=== PATIENT | female | born 1985 | race Caucasian/White ===

== ENCOUNTER 2016-09-28 09:35 | Inpatient (IN) | payer OTHER ==
[2016-09-28 10:11] LABS: APPEARANCE,URINE SLIGHTLY-CLOUDY; BILIRUBIN,URINE NEGATIVE (NEGATIVE); GLUCOSE, URINE NEGATIVE (NEGATIVE); KETONES,URINE NEGATIVE (NEGATIVE); LEUKOCYTE ESTERASE,URINE NEGATIVE (NEGATIVE); NITRITE,URINE NEGATIVE (NEGATIVE); PROTEIN,URINE NEGATIVE (NEGATIVE); URINE SPECIFIC GRAVITY 1.013; UROBILINOGEN,URINE NEGATIVE mg/dL (<2.0)
[2016-09-28 10:42] LABS: URINE BARBITURATES SCREEN NEGATIVE; URINE METHADONE SCREEN NEGATIVE; URINE OPIATES LOW NEGATIVE; URINE PHENCYCLIDINE SCREEN NEGATIVE
[2016-09-28] MEDS ORDERED: MISOPROSTOL 0.2 MG TABLET ONE (11:15)
[2016-09-28] MEDS ORDERED: OXYTOCIN/NORMAL SALINE 20 UNIT/1,000 ML RTUINJ ONE (11:15)
[2016-09-28] MEDS ORDERED: LIDOCAINE 1% INJ-PF (10 MG/ML) 30 ML SDV ONE (11:15)
[2016-09-28 11:24] LABS: ABSOLUTE BASOPHILS # (AUTO) 0.1 10^3/uL (0.0-0.2); ABSOLUTE LYMPHOCYTES (AUTO) 2.7 10^3/uL (0.5-4.7); ABSOLUTE NEUT (AUTO) 9.9 10^3/uL (1.7-8.2); BASOPHILS % (AUTO) 0.4 % (0-2); EOSINOPHILS % (AUTO) 0.3 % (0-6); HEMATOCRIT 36.2 % (36.0-47.0); HEMOGLOBIN 11.9 g/dL (12.0-15.5); HGB HCT DIFFERENCE -0.5; LYMPHOCYTES % (AUTO) 19.7 % (13-45); MEAN CORPUSCULAR HEMOGLOBIN 29.2 pg (27.0-33.4); MEAN CORPUSCULAR HGB CONC 32.8 g/dL (32.0-36.0); MEAN CORPUSCULAR VOLUME 89 fl (80-97); MONOCYTES % (AUTO) 7.4 % (3-13); RED BLOOD COUNT 4.06 10^6/uL (3.72-5.28); RED CELL DISTRIBUTION WIDTH 14.9 % (11.5-14.0); SEGMENTED NEUTROPHILS % (AUTO) 72.2 % (42-78); WHITE BLOOD COUNT 13.8 10^3/uL (4.0-10.5)
[2016-09-28] MEDS ORDERED: OXYTOCIN/NORMAL SALINE 1,000 ML IV PRN (11:28)
[2016-09-28] MEDS ORDERED: DIPH/PERTUSS(ACELL)/TETANUS VAC/PF 0.5 ML SYR (>=10YO) IM PRN (11:28)
[2016-09-28] MEDS ORDERED: DIBUCAINE 1% OINTMENT 28 GM TP PRN (11:28)
[2016-09-28] MEDS ORDERED: ACETAMINOPHEN WITH CODEINE #3 TABLET PO PRN ×2 (11:28)
[2016-09-28] MEDS ORDERED: MEASLES,MUMPS&RUBELLA VACC/PF 0.5 ML VIAL SUBCUT PRN (11:28)
[2016-09-28] MEDS ORDERED: ZOLPIDEM TARTRATE 5 MG TABLET PO PRN (11:28)
[2016-09-28] MEDS ORDERED: OXYTOCIN 10 UNIT/ML VIAL ONE ×2 (11:32→11:53)
[2016-09-28] MEDS ORDERED: METHYLERGONOVINE MALEATE INJ/PF 0.2 MG/1 ML AMPULE ONE (11:40)
[2016-09-28] MEDS ORDERED: FENTANYL CITRATE INJ/PF 100 MCG/2 ML AMPUL ONE (11:52)
[2016-09-28] MEDS ORDERED: CEFAZOLIN 2 GM/D5W RTU 2 GM/50 ML RTUPB IV ONE (12:00)
--- NOTE | 2016-09-28 12:01 | L&D Flow Sheet ---
LD Flowsheet Datetime Report Generated by CPN: 09/28/2016 12:00 Datetime: 09/28/2016 11:41 NBP Sys/Iris/Mean (mmHg): 90 (QS system process) : 61 (QS system process) : 71 (QS system process) Pulse: 86 (QS system process) LaborFlag: Labor (QS system process) Datetime: 09/28/2016 11:30 Medication Comments: IM Pitocin 10 (Eunice Giron, RN) Datetime: 09/28/2016 11:11 Dilatation (cm): 10.0 (Eunice Giron, RN) Effacement (%): 100 (Eunice Giron RN) Station: 1 (Eunice Giron RN) Exam by: A. Emmel CNM (Eunice Giron RN) Datetime: 09/28/2016 11:10 Communication Comments: A. Emmel CNM at bedside (Eunice Giron, RN) Datetime: 09/28/2016 11:09 IV/Blood Work: IV Started; IV Bolus Started (Eunice Giron RN)
[2016-09-28] MEDS ORDERED: CEFAZOLIN 2 GM/D5W RTU 50 ML IV SCH (12:45)
--- NOTE | 2016-09-28 13:46 | Delivery Summary ---
Del Sum A-C Datetime Report Generated by CPN: 09/28/2016 13:45 ADMISSION DATA Chief Complaint: Uterine Contractions; Suspected Ruptured Membranes Admission Impression: Term, Intrauterine Admit Provider Comments: 31 yo admitted for SROM- thick meconium EDC 09/26/16 EGA 40.2 Term Anemia admit pain management reviewed pt desires ambulating provided tracing wnl anticipate d/c DELIVERY PERSONNEL Delivery Doctor:: Silvana Verde MD Nurse Glass Driller Certified:: Boy Barrera CNM Labor and Delivery Nurse:: Eunice Giron foreign student adviser Nurse:: Ashley Buchanan RNC Nursery Nurse:: Joelle Minor RN MATERNAL INFORMATION Delivery Anesthesia: None Medications After Delivery: Pitocin 10 Units IM; Pitocin Bolus-Please Comment; Pitocin Drip 20 Units/1000ml NSS; Methergine 0.2mg IM; Other-Please Comment Meds After Delivery Comment: Cytotec 1000mcg given [place] per Love Barrera CNM, Pitocin 20 units added to Pitocin bag Estimated Blood Loss (ml): 600 Maternal Complications: Precipitous Labor (<3hrs) Provider Comments: delivery of viable female infant bulb suctioned on perinuem to abdomen nursery at bedside cord clamped cut by FOB placenta zavala uterine massage uterine atony pitocin 10 units IM pitcoin infusing 40 units IV cytotec 1000 mcg pv straight cath 200 cc clear urine fundal massage relieves uterine atony methergine 0.2 mg uterine exploration with large clots expelled small clot felt on fundus- Dr. Verde to bedside EBL 600 cc hemostasis achieved LABOR SUMMARY EDC: 09/26/2016 00:00 Attempted: No Labor Anesthesia: None LABOR INFORMATION Reason for Induction: Not Applicable Onset of Labor: 09/28/2016 10:13 Complete Dilatation: 09/28/2016 11:11 Oxytocin: N/A Group B Beta Strep: negative Antibiotics # of Doses: 0 Steroids Given: None Reason Steroids Not Administered: Not Applicable MEMBRANES Membranes Rupture Method: Spontaneous Rupture of Membranes: 09/28/2016 10:13 Length of Rupture (hr): 1.28 Amniotic Fluid Color: Heavy Meconium Amniotic Fluid Amount: Moderate Amniotic Fluid Odor: Normal STAGES OF LABOR Stage 1 hr: 0 Stage 1 min: 58 Stage 2 hr: 0 Stage 2 min: 19 Stage 3 hr: 0 Stage 3 min: 3 Total Time in Labor hr: 1 Total Time in Labor min: 20 VAGINAL DELIVERY Episiotomy: None Laceration Extension: First Degree Laceration Type: Periurethral Laceration Repair: Yes Laceration Repair Note: right and left periurethral tear right labial tear CSECTION DELIVERY Primary Indication: N/A Secondary Indication: N/A CSection Incidence: N/A Labor: N/A Elective: N/A CSection Incision: N/A BABY A INFORMATION Delivery Date/Time: 09/28/2016 11:30 Method of Delivery: Vaginal Born in Route : No : N/A Forceps: N/A Vacuum Extraction: N/A Shoulder Dystocia : No PRESENTATION/POSITION BABY A Presentation: Cephalic Cephalic Presentation: Vertex Vertex Position: Right Occipital Anterior Breech Presentation: N/A PLACENTA INFORMATION BABY A Placenta Delivery Time : 09/28/2016 11:33 Placenta Method of Delivery: Spontaneous Placenta Status: Delivered SCORES BABY A Heart Rate 1 min: >100 bpm Resp Effort 1 min: Good Cry Reflex Irritability 1 min: Cough or Sneeze or Pulls Away Muscle Tone 1 min: Active Motion Color 1 min: Body [place], Extremities Blue Resuscitation Effort 1 min: Tactile Stimulation SCORE 1 MIN: 9 Heart Rate 5 min: >100 bpm Resp Effort 5 min: Good Cry Reflex Irritability 5 min: Cough or Sneeze or Pulls Away Muscle Tone 5 min: Active Motion Color 5 min: Body [place], Extremities Blue Resuscitation Effort 5 min: N/A SCORE 5 MIN: 9 INFORMATION BABY A Gestational Age at Delivery: 40.2 Gestational Status: Full Term- 39- 40.6 Weeks Outcome : Liveborn Condition : Stable Infant Sex: Female IDENTIFICATION BABY A Infant Verification Date/Time: 09/21/2016 12:26 ID Band Number: [id number] Mother's Name Verified: Yes Infant RN Verifying : Maixmiliano Sosa RN/D [place] R[facility] WEIGHT/LENGTH BABY A Infant Birthweight (gm): 3320 Infant Weight (lb): 7 Weight (oz): 5 Length (in): 20.00 Length (cm): 50.80 CORD INFORMATION BABY A No. Cord Vessels: 3 Nuchal Cord : N/A Cord Blood Taken: Yes-For Storage (Mom's Blood type +) Suction: None ASSESSMENT BABY A Complications: Meconium Physical Findings at Delivery: Within Normal Limits Infant Respirations: Appears Normal Skin to Skin: Yes Locomotive Mechanic/ALS Called : No Care By: Alex Minor RN Transferred To: Remains with Mother BABY B INFORMATION : N/A SIGNATURES Assignment: Silvana Verde MD Signature: with User ID: [email or web address] : with User ID: [email or web address]
--- NOTE | 2016-09-28 14:01 | L&D Flow Sheet ---
LD Flowsheet Datetime Report Generated by CPN: 09/28/2016 14:00 Datetime: 09/28/2016 13:30 NBP Sys/Iris/Mean (mmHg): 108/52 (Eunice Giron, RN) Pulse: 66 (Eunice Giron, RN) Respirations: 18 (Euncie Giron, RN) Datetime: 09/28/2016 13:15 NBP Sys/Iris/Mean (mmHg): 99/72 (Eunice Giron, RN) Datetime: 09/28/2016 12:45 Stage of : Recovery (Eunice Giron RN) NBP Sys/Iris/Mean (mmHg): 106/66 (Eunice Giron RN) Pain Scale: 1 (Eunice Giron RN) Pain Presence: Intermittent (Eunice Giron RN) Pain Type: Burning; Cramping; Ache (Eunice Giron, RN) Pain Location: Abdomen; Perineum (Eunice Giron, RN) Datetime: 09/28/2016 12:30 Stage of : Recovery (Eunice Giron RN) Pain Scale: 1 (Euniec Giron, RN) Pain Presence: Intermittent (Eunice Giron, RN) Pain Type: Burning; Cramping; Ache (Eunice Giron, RN) Pain Location: Abdomen; Perineum (Eunice Giron, RN) Datetime: 09/28/2016 12:18 Temperature (F): 98.1 (Eunice Giron, RN) Temperature (C): 36.7 (QS system process) Datetime: 09/28/2016 12:17 NBP Sys/Iris/Mean (mmHg): 98/54 (Eunice Giron, RN) Datetime: 09/28/2016 12:03 Analgesics/Sedatives: Fentanyl (mcg) @ 50 (Eunice Giron, RN) Datetime: 09/28/2016 12:02 NBP Sys/Iris/Mean (mmHg): 92/58 (Eunice Giron RN) Antibiotics: Ancef IV (Gm) @ 2 (Eunice Giron RN)
--- NOTE | 2016-09-28 14:49 | Admission Physical ---
Datetime Report Generated by CPN: 09/28/2016 14:49 CURRENT ADMISSION Chief Complaint: Uterine Contractions; Suspected Ruptured Membranes Admit Plan: Admit to Unit ALLERGIES Medication Allergies: Yes Medication Allergies: clarithromycin (09/28/2016) Latex: No Latex Allergies OBSTETRICAL HISTORY EDC: 09/26/2016 00:00 : 1 Para: 0 Gestational Diabetes: No Rh Sensitization: No Incompetent Cervix: No [place]: No Infertility: No ART Treatment: No Uterine Anomaly: No IUGR: No Hx Previous C/S: No Macrosomia: No Hx Loss/Stillborn: No PIH: No Hx : No Placenta Previa/Abruption: No Depression/PP Depression: No PTL/PROM: No Post Hemorrhage: No Current Procedures: Ultrasound; NST Obstetrical History Comments: G1: current SEE RECORDS Alcohol: No Marijuana : No Cocaine: No Other Illicit Drugs: No Cigarettes: Never Smoker. [id number] MEDICAL HISTORY Diabetes: No Blood Transfusion: No Pulmonary Disease (Asthma, TB): No Breast Disease: No Hypertension: No Sales Order Clerk Surgery: No Heart Disease: No Hosp/Surgery: Yes Autoimmune Disorder: No Anesthetic Complications: No Kidney Disease: No Abnormal Pap Smear: No Neuro/Epilepsy: No Psychiatric Disorders: No Other Medical Diseases: No Hepatitis/Liver Disease: No Significant Family History: No Varicosities/Phlebitis: No Trauma/Violence : No Thyroid Dysfunction: No Medical History Comments: wisdom teeth 2002, anemia INFECTIOUS HISTORY Gonorrhea: No Genital Herpes: No Chlamydia: No Tuberculosis: No Syphilis: No Hepatitis: No HIV/AIDS Exposure: No Rash or Viral Illness: No HPV: No PHYSICAL EXAM General: Normal HEENT: Normal Neurologic: Normal Thyroid: Normal Heart: Normal Lungs: Normal Breast: Normal Back: Normal Abdomen: Normal Genitourinary Exam: Normal Extremities: Normal DTRs: Normal Pelvic Type: Adequate Vital Signs: Reviewed VAGINAL EXAM Dilatation: 2 Effacement: 90 Station: -1 MEMBRANES Membranes: Ruptured Amniotic Fluid Color: Meconium, Heavy FETUS A EGA: 40.2 Monitoring: External US FHR- Baseline: 120 Variability: Moderate 6-25bpm Accelerations: 15X15 Decelerations: None Presentation: Vertex Admit Comment: 31 yo admitted for SROM- thick meconium EDC 09/26/16 EGA 40.2 Term Anemia admit pain management reviewed pt desires ambulating provided tracing wnl anticipate d/c PLANS FOR LABOR AND DELIVERY Labor and Delivery: None Pain Management: Epidural Feeding Preference: Breast Benefit of Breast Feed Discussed: Yes Circumcision: N/A INFORMED CONSENT Informed Consent Obtained: Vaginal Delivery; Section Delivery; Risks, Benefits and Alternatives Discussed Assignment: Silvana Verde MD Signature: with User ID: [email or web address] : with User ID: [email or web address]
[2016-09-28] MEDS: IBUPROFEN 800 MG TABLET PO SCH ×2 (16:17→21:49)
[2016-09-28] MEDS: BENZOCAINE/MENTHOL AEROSOL SPRAY 56 ML TOP PRN (16:20)
[2016-09-28] MEDS: FERROUS SULFATE 325 MG TABLET PO SCH (17:10)
[2016-09-28] MEDS: DOCUSATE SODIUM 100 MG CAPSULE PO SCH (17:10)
--- NOTE | 2016-09-28 19:01 | L&D Flow Sheet ---
LD Flowsheet Datetime Report Generated by CPN: 09/28/2016 19:00 Datetime: 09/28/2016 14:37 Vital Signs Stage of : Recovery (Eunice Giron, RN) Datetime: 09/28/2016 14:07 Vital Signs Stage of : Recovery (Eunice Giron, RN) Pain Pain Scale: 1 (Eunice Giron, RN) Pain Presence: Intermittent (Eunice Giron, RN) Pain Type: Burning; Pressure; Ache (Euniceludmlia Giron, RN) Pain Location: Perineum (Eunice Mack, RN) Datetime: 09/28/2016 13:30 NBP Sys/Iris/Mean (mmHg): 108/52 (Eunice Giron, RN) Pulse: 66 (Eunice Giron, RN) Respirations: 18 (Eunice Giron, RN) Datetime: 09/28/2016 13:15 NBP Sys/Iris/Mean (mmHg): 99/72 (Eunice Giron, RN) Datetime: 09/28/2016 12:45 Vital Signs Stage of : Recovery (Eunice Giron, RN) NBP Sys/Iris/Mean (mmHg): 106/66 (Eunice Mack, RN) Pain Pain Scale: 1 (Eunice Giron, RN) Pain Presence: Intermittent (Eunice Giron, RN) Pain Type: Burning; Cramping; Ache (Eunice Giron, RN) Pain Location: Abdomen; Perineum (Eunice Giron, RN) Datetime: 09/28/2016 12:30 Vital Signs Stage of : Recovery (Eunice Giron, RN) Pain Pain Scale: 1 (Eunice Giron, RN) Pain Presence: Intermittent (Euniceludmila Giron, RN) Pain Type: Burning; Cramping; Ache (Eunice Mack, RN) Pain Location: Abdomen; Perineum (Eunice Giron, RN) Datetime: 09/28/2016 12:18 Temperature (F): 98.1 (Eunice Giron, RN) Temperature (C): 36.7 (QS system process) Datetime: 09/28/2016 12:17 NBP Sys/Iris/Mean (mmHg): 98/54 (Eunice Giron, RN) Datetime: 09/28/2016 12:03 Medications Analgesics/Sedatives: Fentanyl (mcg) @ 50 (Eunice Giron, RN) Datetime: 09/28/2016 12:02 NBP Sys/Iris/Mean (mmHg): 92/58 (Eunice Giron RN) Antibiotics: Ancef IV (Gm) @ 2 (Eunice Giron, RN) Datetime: 09/28/2016 11:55 Vital Signs Stage of : Recovery (Eunice Giron, RN) Datetime: 09/28/2016 11:44 Vital Signs Stage of : Recovery (Eunice Giron, RN) Medication Comments: Methergine 0.2 (Eunice Giron, RN) Datetime: 09/28/2016 11:41 Vital Signs Stage of : Recovery (Eunice Giron, RN) NBP Sys/Iris/Mean (mmHg): 90 (QS system process) : 61 (QS system process) : 71 (QS system process) Pulse: 86 (QS system process) Datetime: 09/28/2016 11:33 Vital Signs Stage of : Recovery (Eunice Giron, RN) Datetime: 09/28/2016 11:30 Medication Comments: IM Pitocin 10 (Eunice Giron, RN) Datetime: 09/28/2016 11:25 Comments: FHTs 115 (Eunice Giron, RN) Datetime: 09/28/2016 11:15 Uterine Activity Monitor Mode: External; Palpation (Eunice Giron, RN) Frequency (min): 1-2 (Eunice Giron, RN) Quality: Moderate to Strong (Eunice Giron, RN) Duration (sec): 40-80 (Eunice Giron, RN) Resting Tone (Palpate): Relaxed (Eunice Giron, RN) Assessment A Monitor Mode: External US (Eunice Giron RN) FHR Baseline Rate : 125 (Eunice Giron, RN) Variability: Moderate 6-25 bpm (Eunice Giron, RN) Accelerations: 15X15 (Euniceludmila Giron, RN) Decelerations: None (Eunice Giron, RN) Datetime: 09/28/2016 11:13 Stage 2 Pushing: Coached on Pushing; Urge to Push (Eunice Giron, RN) Pushing Position: Pushing with Contractions (Eunice Giron, RN) Pushing Progress: Descent with Pushing (Eunice Giron, RN) Preparation for Delivery: Setup for Delivery (Eunice Giron, RN) Datetime: 09/28/2016 11:11 Vaginal Exam Dilatation (cm): 10.0 (Eunice Giron, RN) Effacement (%): 100 (Eunice Giron, RN) Station: 1 (Eunice Giron, RN) Exam by: A. Emmel CNM (Eunice Giron, RN) Communication Communication Comments: provider and RN at bedside continuously assessing FHTs (Eunice Giron, RN) Datetime: 09/28/2016 11:10 Communication Communication Comments: A. Emmel CNM at bedside (Eunice Giron, RN) Datetime: 09/28/2016 11:09 Patient Care IV/Blood Work: IV Started; IV Bolus Started (Eunice Giron, RN) Datetime: 09/28/2016 10:43 Membranes Ruptured Date/Time: 09/28/2016 10:13 (Eunice Giron RN) Membranes Rupture Method: Spontaneous (Eunice Giron RN) Amniotic Fluid Color: Heavy Meconium (Eunice Giron RN) Amniotic Fluid Amount: Moderate (Eunice Giron RN) Amniotic Fluid Odor: Normal (Eunice Giron RN) Datetime: 09/28/2016 10:30 Pain Pain Scale: 5 (Eunice Giron RN) Pain Presence: Intermittent (Eunice Giron RN) Pain Type: Contraction (Eunice Giron RN) Pain Location: Abdomen (Eunice Giron RN) Vaginal Bleeding: None (Eunice Giron RN) Maternal Assessment Level of Consciousness: Fully Conscious (Eunice Giron, RN) DTR's/Clonus: DTRs 2+; No Clonus (Eunice Giron, RN) Headache: Denies (Eunice Giron, RN) Breath Sounds, Left: Clear and Equal (Eunice Giron, RN) Breath Sounds, Right: Clear and Equal (Eunice Giron, RN) Nausea/Vomiting: Denies (Eunice Giron, RN) RUQ Epigastric Pain: Denies (Eunice Giron, RN) LaborFlag: Labor (QS system process) Datetime: 09/28/2016 10:13 Uterine Activity Monitor Mode: External (Eunice Giron, RN) Frequency (min): 1-2 (Eunice Giron, RN) Quality: Moderate (Eunice Grion, RN) Duration (sec): 50-70 (Eunice Giron, RN) Resting Tone (Palpate): Relaxed (Eunice Giron, RN) Assessment A Monitor Mode: External US (Eunice Giron, RN) FHR Baseline Rate : 145 (Eunice Giron, RN) Variability: Moderate 6-25 bpm (Eunice Giron, RN) Accelerations: 15X15 (Eunice Giron, RN) Decelerations: None (Eunice Giron, RN) Datetime: 09/28/2016 10:00 Uterine Activity Monitor Mode: External; Palpation (Eunice Giron, RN) Frequency (min): 1-2 (Eunice Giron, RN) Quality: Moderate (Eunice Giron, RN) Duration (sec): 60-70 (Eunice Giron, RN) Resting Tone (Palpate): Relaxed (Eunice Giron, RN) Assessment A Monitor Mode: External US (Eunice Giron, RN) FHR Baseline Rate : 145 (Eunice Giron, RN) Variability: Moderate 6-25 bpm (Eunice Giron, RN) Accelerations: 15X15 (Eunice Giron, RN) Decelerations: None (Eunice Giron, RN) Datetime: 09/28/2016 09:42 Vital Signs Stage of : Labor (Eunice Giron RN)
[2016-09-29] MEDS: IBUPROFEN 800 MG TABLET PO SCH ×3 (05:50→22:00)
--- NOTE | 2016-09-29 06:01 | L&D General Admission ---
General Admit Datetime Report Generated by CPN: 09/29/2016 06:00 INFORMATION Patient Age: 30 (08/28/2016 16:12:QS system process) EDC: 09/26/2016 00:00 (09/28/2016 10:43:Eunice Giron RN) : 1 (09/28/2016 10:43:Eunice Giron RN) Para: 0 (09/28/2016 10:43:Eunice Giron RN) CARE Primary Cloth Spreader: [facility] (09/28/2016 10:43:Eunice Giron RN) Month of 1st Visit: February (09/28/2016 10:43:Eunice Giron RN) Adequate Care: Yes (09/28/2016 10:43:Eunice Giron RN) Prepregnancy Weight (lb): 133 (09/28/2016 10:43:Eunice Giron RN) Prepregnancy Weight (kg): 60.5 (09/28/2016 10:43:QS system process) Height (in): 65 (09/28/2016 12:12:QS system process) ALLERGIES Medication Allergy: Yes (09/28/2016 10:43:Eunice Giron RN) Medication Allergies: clarithromycin (09/28/2016) (09/28/2016 12:14:QS system process) Latex Allergy: No Latex Allergies (09/28/2016 10:43:Eunice Giron RN) COMMUNICATION Primary Language: Polish (09/28/2016 10:43:Eunice Giron RN) Medical Tx Preferred Language: Polish (09/28/2016 10:43:Eunice Giron RN) DEMOGRAPHICS Address: [address] [place] [id number] (08/28/2016 16:12:QS system process) Zipcode: [address] (08/28/2016 16:12:QS system process) Home (08/28/2016 16:12:QS system process) SSN: [id number] (08/28/2016 16:12:QS system process) Next of Kin Name: RJ LEGER (08/28/2016 16:12:QS system process) Next of Kin (08/28/2016 16:12:QS system process) Next of Kin Relationship: SPO (08/28/2016 16:12:QS system process) Date of : 1985 (08/28/2016 16:12:QS system process) Marital Status: (08/28/2016 16:12:QS system process) Sex: Female (08/28/2016 16:12:QS system process) Race: (08/28/2016 16:12:QS system process) Ethnicity: Non- or (08/28/2016 16:12:QS system process) Buddhism: Mandaen (08/28/2016 16:12:QS system process) DRUG AND ALCOHOL USE Alcohol: No (09/28/2016 10:43:Eunice Giron RN) Cigarettes: Never Smoker. 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: [facility] (09/28/2016 10:43:Eunice Giron RN) Feeding Preference: Breast (09/28/2016 10:43:Eunice Giron RN) Benefit of Breast Feed Discussed: Yes (09/28/2016 10:43:Eunice Giron RN) Circumcision: N/A (09/28/2016 10:43:Eunice Giron RN) Classes Attended: No (09/28/2016 10:43:Eunice Giron RN) Tubal Ligation: No (09/28/2016 10:43:Eunice Giron RN) Tubal Authorization Signed: N/A (09/28/2016 10:43:Eunice Giron RN) Consent: N/A (09/28/2016 10:43:Eunice Giron RN) Consent Signed: N/A (09/28/2016 10:43:Eunice Giron RN) Pain Management Plans: Epidural (09/28/2016 10:43:Eunice Giron RN) Plans for Labor and Delivery: None (09/28/2016 10:43:Eunice Giron RN) Support Person: Rj (09/28/2016 10:43:Eunice Giron RN) Spir/Cult Dietary Needs: No (09/28/2016 10:43:Eunice Giron RN) LIVING SITUATION/DISCHARGE PLAN Living Arrangements: House (09/28/2016 10:43:Eunice Giron RN) Adequate Access to:: Electric; Heat; Refrigeration; Plumbing/Running water; Phone; Transportation (09/28/2016 10:43:Eunice Giron RN) WIC Program: No (09/28/2016 10:43:Eunice Giron RN) Discharge Lean Manufacturing Engineer Person: FOHelen (09/28/2016 10:43:Eunice Giron RN) Person to Help after Discharge: FOB (09/28/2016 10:43:Eunice Giron RN) Currently Using Commun Resources: No (09/28/2016 10:43:Eunice Giron RN) Outside Agency/[employer] Supervisor: No (09/28/2016 10:43:Eunice Giron RN) Car Seat for Discharge: Yes (09/28/2016 10:43:Eunice Giron RN) Adoption Requested: No (09/28/2016 10:43:Eunice Giron RN) Pt Contact w/infant Post : N/A (09/28/2016 10:43:Eunice Giron RN) LABS Blood Type: A Positive (09/28/2016 10:43:Eunice Giron RN) Antibody Screen: negative (09/28/2016 10:43:Eunice Giron RN) Hemoglobin: 11.9 L (09/28/2016 10:57:QS system process) Hematocrit: 36.2 (09/28/2016 10:57:QS system process) MCV: 89 (09/28/2016 10:57:QS system process) Group Beta Strep: negative (09/28/2016 10:43:Eunice Giron RN) Gonorrhea: Negative (09/28/2016 10:43:Eunice Giron RN) Chlamydia: Negative (09/28/2016 10:43:Eunice Giron RN) RPR/VDRL: Nonreactive (09/28/2016 10:43:Eunice Giron RN) Hepatitis B: Negative (09/28/2016 10:43:Eunice Giron RN) Rubella: Immune (09/28/2016 10:43:Eunice Giron RN) OB/PREVIOUS HISTORY Current Procedures: Ultrasound; NST (09/28/2016 10:43:Eunice Giron RN) History of Previous : No (09/28/2016 10:43:Eunice Giron RN) History of Gestational Diabetes: No (09/28/2016 10:43:Eunice Giron RN) History of PIH: No (09/28/2016 10:43:Eunice Giron RN) History of Incompetent Cervix: No (09/28/2016 10:43:Eunice Giron RN) History of Placenta Previa/Abrup: No (09/28/2016 10:43:Eunice Giron RN) History of Macrosomia: No (09/28/2016 10:43:Eunice Giron RN) History of IUGR: No (09/28/2016 10:43:Eunice Giron RN) History of Hemorrhage: No (09/28/2016 10:43:Eunice Giron RN) History of Loss/Stillborn: No (09/28/2016 10:43:Eunice Giron RN) History of : No (09/28/2016 10:43:Eunice Giron RN) History of D (Rh) Sensitization: No (09/28/2016 10:43:Eunice Giron RN) History Recurrent Loss/Stillborn: No (09/28/2016 10:43:Eunice Giron RN) History Depression/PP Depression: No (09/28/2016 10:43:Eunice Giron RN) History of Uterine Anomaly/DAKOTA: No (09/28/2016 10:43:Eunice Giron RN) History of Infertility: No (09/28/2016 10:43:Eunice Giron RN) History of ART Treatment: No (09/28/2016 10:43:Eunice Giron RN) History of DAKOTA: No (09/28/2016 10:43:Eunice Giron RN) Comments Obstetrical History: G1: current (09/28/2016 10:43:Eunice Giron RN) MEDICAL HISTORY Med Hx Diabetes: No (09/28/2016 10:43:Eunice Giron RN) Med Hx Hypertension: No (09/28/2016 10:43:Eunice Giron RN) Med Hx Heart Disease: No (09/28/2016 10:43:Eunice Giron RN) Med Hx Autoimmune Disorder: No (09/28/2016 10:43:Eunice Giron RN) Med Hx Kidney Disease/UTI: No (09/28/2016 10:43:Eunice Giron RN) Med Hx Neurologic/Epilepsy: No (09/28/2016 10:43:Eunice Giron RN) Med Hx Psychiatric Disorders: No (09/28/2016 10:43:Eunice Giron RN) Med Hx Hepatitis/Liver Disease: No (09/28/2016 10:43:Eunice Giron RN) Med Hx Varicosities/Phlebitis: No (09/28/2016 10:43:Eunice Giron RN) Med Hx Thyroid Dysfunction: No (09/28/2016 10:43:Eunice Girno RN) Med Hx Trauma/Violence: No (09/28/2016 10:43:Eunice Giron RN) Med Hx Blood Transfusion: No (09/28/2016 10:43:Eunice Giron RN) Med Hx Pulmonary (Asthma,TB): No (09/28/2016 10:43:Eunice Giron RN) Med Hx Breast: No (09/28/2016 10:43:Eunice Giron RN) Med Hx SANDBLASTER GLASS Surgery: No (09/28/2016 10:43:Eunice Giron RN) Med Hx Hospitalization/Surgery: Yes (09/28/2016 10:43:Eunice Giron RN) Med Hx Anesthetic Complications: No (09/28/2016 10:43:Eunice Giron RN) Med Hx Abnormal Pap Smear: No (09/28/2016 10:43:Eunice Giron RN) Other Medical Diseases: No (09/28/2016 10:43:Eunice Giron RN) Med Hx Significant Family Hx: No (09/28/2016 10:43:Eunice Giron RN) Details of Med/Surg Hx: wisdom teeth 2002, anemia (09/28/2016 10:43:Eunice Giron RN) INFECTIOUS HISTORY Inf Hx Gonorrhea: No (09/28/2016 10:43:Eunice Giron RN) Inf Hx Chlamydia: No (09/28/2016 10:43:Eunice Grion RN) Inf Hx Syphilis: No (09/28/2016 10:43:Eunice Giron RN) Inf Hx HIV/AIDS: No (09/28/2016 10:43:Eunice Giron RN) Inf Hx Human Papilloma Virus: No (09/28/2016 10:43:Eunice Giron RN) Inf Hx Pt/Partner Genital Herpes: No (09/28/2016 10:43:Eunice Giron RN) Inf Hx Tuberculosis/Exposure: No (09/28/2016 10:43:Eunice Giron RN) Inf Hx Hepatitis B,C: No (09/28/2016 10:43:Eunice Giron RN) Inf Hx Rash or Viral Illness: No (09/28/2016 10:43:Eunice Giron RN) GENETIC HISTORY Gen Hx Age >=35 at BRIE: No (09/28/2016 10:43:Eunice Giron RN) Gen Hx Thalassemia: No (09/28/2016 10:43:Eunice Giron RN) Gen Hx Congenital Heart Defect: No (09/28/2016 10:43:Eunice Giron RN) Gen Hx Neural Tube Defect: No (09/28/2016 10:43:Eunice Giron RN) Gen Hx Down's Syndrome: No (09/28/2016 10:43:Eunice Giron RN) Gen Hx Rohan-Sachs: No (09/28/2016 10:43:Eunice Giron RN) Gen Hx Alonzo: No (09/28/2016 10:43:Eunice Giron RN) Gen Hx Familial Dysautonomia: No (09/28/2016 10:43:Eunice Giron RN) Gen Hx Sickle Cell Disease/Trait: No (09/28/2016 10:43:Eunice Giron RN) Gen Hx Hemophilia/Blood Disorder: No (09/28/2016 10:43:Eunice Giron RN) Gen Hx Muscular Dystrophy: No (09/28/2016 10:43:Eunice Giron RN) Gen Hx Cystic Fibrosis: No (09/28/2016 10:43:Eunice Giron RN) Gen Hx Huntingtons Chorea: No (09/28/2016 10:43:Eunice Giron RN) Gen Hx Mental Retardation/Autism: No (09/28/2016 10:43:Eunice Giron RN) Gen Hx Tested for Fragile X: No (09/28/2016 10:43:Eunice Giron RN) Gen Hx Other Inher/Chromosomal: No (09/28/2016 10:43:Eunice Giron RN) Gen Hx Maternal Metabolic DO: No (09/28/2016 10:43:Eunice Giron RN) Gen Hx Pt Father or FOB Defect: No (09/28/2016 10:43:Eunice Giron RN) Gen Hx Other Genetic History: No (09/28/2016 10:43:Eunice Giron RN) Gen Hx Drugs/Meds since LMP: Yes (09/28/2016 10:43:Eunice Giron RN) Gen Hx Medications: PNV, iron (09/28/2016 10:43:Eunice Giron RN)
--- NOTE | 2016-09-29 06:01 | L&D Current Admission ---
Current Admit Datetime Report Generated by CPN: 09/29/2016 06:00 ADMISSION INFORMATION Current Admit Date/Time: 09/28/2016 10:30 (09/28/2016 10:30:Eunice Giron RN) Reason for Admission: Onset of Labor (09/28/2016 10:30:Eunice Giron RN) Chief Complaint: Contractions (09/28/2016 10:30:Eunice Giron RN) Medications During : Vitamin (09/28/2016 10:30:Eunice Giron RN) EGA per Dates: 40.2 (09/28/2016 10:43:QS system process) Method of Arrival: Ambulatory (09/28/2016 10:30:Eunice Giron RN) Reason for Induction: Not Applicable (09/28/2016 10:30:Eunice Giron RN) Records Available: Yes (09/28/2016 10:30:Eunice Giron RN) General Admission Information: Reviewed (09/28/2016 10:30:Eunice Giron RN) General Admission Reviewed By: Love Giron RN (09/28/2016 10:30:Eunice Giron RN) BELONGINGS/ADVANCED DIRECTIVES Other Belongings: see consents (09/28/2016 10:30:Eunice Giron RN) Disposition of Belongings: Kept with Patient (09/28/2016 10:30:Eunice Giron RN) Advance Direct for Healthcare: No, and Wants No Information (09/28/2016 10:30:Eunice Giron RN) Durable Power of Program Scheduler: No (09/28/2016 10:30:Eunice Giron RN) Living Will: No (09/28/2016 10:30:Eunice Giron RN) Organ Donor: No (09/28/2016 10:30:Eunice Giron RN) Pt Rights Information Given: Yes (09/28/2016 10:30:Eunice Giron RN) Pt Understands Pt Rights: Yes (09/28/2016 10:30:Eunice Giron RN) LEARNING ASSESSMENT Knowledge Level: Understands L_D Process; Understands Care Activities; Had Pre-Hospital Education; Understands Diagnosis (09/28/2016 10:30:Eunice Giron RN) Barriers to Learning: None (09/28/2016 10:30:Eunice Giron RN) Learning Readiness: Motivated (09/28/2016 10:30:Eunice Giron RN) Learns Best By: 1 to 1 Instruction (09/28/2016 10:30:Eunice Giron RN) DOMESTIC VIOLANCE SCREENING Dom Viol Threatened/Hurt: No (09/28/2016 10:30:Eunice Giron RN) Hx of Abuse/Neglect past 2yrs: No (09/28/2016 10:30:Eunice Giron RN) Feel Unsafe Going Home: No (09/28/2016 10:30:Eunice Giron RN) Addt'l Observ Indicating Abuse: No (09/28/2016 10:30:Eunice Giron RN) Reason Unable to Complete Screen: N/A, Screen Completed (09/28/2016 10:30:Eunice Giron RN) Considered Personal Harm/Suicide: No (09/28/2016 10:30:Eunice Giron RN) NUTRITIONAL/FUNCTIONAL SCREENING Problem with Appetite >5 Days: No (09/28/2016 10:30:Eunice Giron RN) Chew/Swallow Difficulties: No (09/28/2016 10:30:Eunice Giron RN) Inappropriate Wt Gain/Loss: No (09/28/2016 10:30:Eunice Giron RN) Presence Skin Breakdown/Ulcer: No (09/28/2016 10:30:Eunice Giron RN) Special Diet: No (09/28/2016 10:30:Eunice Giron RN) Pt Requests Centrifugal Wax Molder Visit: No (09/28/2016 10:30:Eunice Giron RN) Hx of Any of the Following?: N/A (09/28/2016 10:30:Eunice Giron RN) New Diagnosis of: N/A (09/28/2016 10:30:Eunice Giron RN) Requires Assist w/Ambulation: No (09/28/2016 10:30:Eunice Giron RN) Uses Assist Device to Ambulate: No (09/28/2016 10:30:Eunice Giron RN) Pt Requires Help w/ADL's: No (09/28/2016 10:30:Eunice Giron RN)
--- NOTE | 2016-09-29 06:16 | L&D Care Plan ---
LD CARE PLANS Datetime Report Generated by CPN: 09/29/2016 06:15 Datetime: 09/28/2016 10:41 Pain State: Risk For (Eunice Giron RN) Related To: Labor and Delivery Process; Treatment and Procedures; Post (Eunice Giron RN) Goal(s): Patients Pain will be Assessed and Managed; Patient will Verbalize Adequate Relief of Pain or the Ability to Streator with Current Pain (Eunice Giron RN) Interventions: Assess Pain Severity on Scale of 0 (None) to 5 (Severe); Assess Type, Location and Intensity of Pain Each Time Client Reports Discomfort and Notify Provider if Unusal Pain Develops; Encourage Proper Breathing and Relaxation Techniques; Offer Alternatives Such as Repositioning, Calm Environment, Massages, Diversional Activities, Ice Pack, Splinting, and Ambulation; Administer Analgesics as Ordered; Assist with Epidural Placement as Appropriate; Evaluate Therapeutic Effectiveness of Medication and Treatments (Eunice Giron RN) Outcome: Patient will Report Absence or Relief of Pain Consistent with Established Pain Goal (Eunice Giron RN) Status: Ongoing (Eunice Giron RN) Outcome: Patient will have a Decrease in Signs and Symptoms of Discomfort (Eunice Giron RN) Status: Ongoing (Eunice Giron RN) Outcome: Pain will be Controlled During Procedures (Eunice Giron RN) Status: Ongoing (Eunice Giron RN) Anxiety State: Risk For (Eunice Giron RN) Related To: Labor and Delivery Process; Situational Crisis; Medical Interventions; Significant Life Event (Eunice Giron RN) Goal(s): Patient will have Decreased Anxiety and be able to Function at Acceptable Levels (Eunice Giron RN) Interventions: Assess Verbal and Nonverbal Behavioral Indicators of Anxiety; Assist Patient to Identify and Verbalize Symptoms of Anxiety; Identify and Demonstrate Techniques to Control Anxiety; Assist Patient with Coping Mechanisms to Manage Anxiety; Provide Theraputic Touch for the Patient; Explain to Patient, Using a Calm Reassuring Approach and Nonmedical Terms, All Activities, Procedures, and Concerns; Instruct Patient and Family about Post Discharge Care, Limitations, Symptoms to Report and Resources Available (Eunice Giron RN) Outcome: Patient will Identify, Verbalize and Demonstrate Techniques to Control Anxiety (Eunice Giron RN) Status: Ongoing (Eunice Giron RN) Outcome: Patient's Posture, Facial Expressions, Gestures and Activity Level will Reflect Decreased Anxiety (Eunice Giron RN) Status: Ongoing (Eunice Giron RN) Outcome: Patient will Verbalize a Sense of Control and/or Acceptance of the Situation (Eunice Giron RN) Status: Ongoing (Eunice Giron RN) Outcome: Patient will Identify and Utilize Support Person (Eunice Giron RN) Status: Ongoing (Eunice Giron RN) Knowledge Deficit State: Risk For (Eunice Giron RN) Related To: Labor and Delivery Process; Treatment and Procedures (Eunice Giron RN) Goal(s): Patient will Accurately Verbalize Understanding of Plan of Care and Treatment; Patient and Family will Accurately Verbalize Understanding of the Disease Process (Eunice Giron RN) Interventions: Assess Motivation and Willingness of Patient/Family to Learn; Assess Preferred Learning Mode: One to One Instruction, Reading, Videos, Group Discussion or Demonstration; Assess Barriers to Learning: Pain, Emotional State, Language Barrier, Cognitive Impairment, Visual or Hearing Deficits; Assess Patient and Family Knowledge of Disease Process, Medications and Treatment; Discuss Therapy and/or Treatment Options, Describe Rationale Behind Management, Therapy and Treatment Recommendations; Instruct Patient and Family on Signs and Symptoms to Report; Instruct Patient and Family on Medication Effects and Side Effects; Provide Appropriate and Timely Education Using Multiple Techniques; Provide Patient and Family with Support Group Information and Resources; Give Clear and Thorough Explanations and Demonstrations (Eunice Giron RN) Outcome: Patient and Family will Verbalize Understanding of Condition, Treatment and Signs and Symptoms to Report (Eunice Giron RN) Status: Ongoing (Eunice Giron RN) Outcome: Patient will Identify Perceived Learning Needs and Express Motivation to Learn (Eunice Giron RN) Status: Ongoing (Eunice Giron RN) Outcome: Patient will Verbalize Understanding of Desired Content, and/or Performs Desired Skill Prior to Discharge (Eunice Giron RN) Status: Ongoing (Eunice Giron RN) Infection State: Risk For (Eunice Giron RN) Related To: Surgical Procedures; Prolonged Labor or Induction; Invasive Procedures (Eunice Giron RN) Goal(s): The Patient will be Free of Infection, Vital Signs Stable and Lab Work within Normal Parameters (Eunice Giron RN) Interventions: Instruct and Reinforce Proper Handwashing, Hygiene, and Care Techniques to Patient and Family; Monitor Vital Signs; Monitor Patient for the Following Signs of Infection: Fever, Abdominal Tenderness, Unusual Discharge; Monitor Aminiotic Fluid, Urine and Lochia for Color and Odor; Observe Wounds, Incisions and Invasive Line Sites for Redness, Drainage and Edema; Assess IV Sites per Hospital Policy; Monitor Lab and Test Results and Notify Provider of Abnormal Findings; Assess Nutritional Status and Promote Good Nutrition (Eunice Giron RN) Outcome: Patient will Remain Free of Infection (Eunice Giron RN) Status: Ongoing (Eunice Giron RN) Outcome: Infection will be Recognized Early to Allow for Prompt Treatment (Eunice Giron RN) Status: Ongoing (Eunice Giron RN) Outcome: Patient will have Vital Signs Within Expected Range (Eunice Giron RN) Status: Ongoing (Eunice Giron RN) Fluid Volume State: Risk For (Eunice Giron RN) Related To: Prolonged Labor or Induction (Eunice Giron RN) Goal(s): Patient will Achieve and Maintain a Balanced Fluid Volume Status; Hemodynamically Stable (Eunice Giron RN) Interventions: Monitor Vital Signs; Auscultate Breath Sounds; Monitor Patient for Skin Turgor, Mucous Membranes, Dry Skin, Weakness, Headaches and Confusion; Provide Oral Fluids as Ordered; Initiate and Maintain Intravenous Fluids as Ordered; Monitor Intake and Output as Indicated Per Patient Status; Accurately Measure Blood Loss; Monitor Lab and Test Results as Obtained and Notify Provider of Abnormal Findings; Monitor Patient's Weight (Eunice Giron RN) Outcome: Patient will have Clear Lung Sounds (Eunice Giron RN) Status: Ongoing (Eunice Giron RN) Outcome: Patient will have Vital Signs within Expected Range (Eunice Giron RN) Status: Ongoing (Eunice Giron RN) Outcome: Urine Output will be within Expected Range (Eunice Giron RN) Status: Ongoing (Eunice Giron RN) Outcome: Patient will have Minimal Generalized or Upper Extremity Edema (Eunice Giron RN) Status: Ongoing (Eunice Giron RN) Injury State: Not Applicable (Eunice Giron RN) Impaired Skin Integrity State: Risk For (Eunice Giron RN) Related To: Vaginal Delivery; Invasive Procedures (Eunice Giron RN) Goal(s): Patient will Maintain Optimal Skin Integrity, Free of Breakdown, Injury or Infection (Eunice Giron RN) Interventions: Complete Screening for Pressure Ulcer Risk and Initiate Protocol per Hospital Policy; Monitor Site of Skin Impairment for Color Changes, Redness, Swelling, Warmth, Pain or Other Signs of Infection; Encourage and Assist with Position Changes; Monitor Patient's Mobility Status; Provide Adequate Nutrition and Fluids; Teach Patient Appropriate Hygienic Care; Teach Patient/Family Skin Care Management (Eunice Giron RN) Outcome: Patient will not have Evidence of Injury Such as Skin Breakdown, Scrapes, Cuts, or Bruising (Eunice Giron RN) Status: Ongoing (Eunice Giron RN) Outcome: Patient will Report Any Altered Sensation or Pain at Site of Skin Impairment (Eunice Giron, RN) Status: Ongoing (Eunice Giron RN) Outcome: Patients Incisions and Wounds will be without Signs or Symptoms of Infection (Eunice Giron, RN) Status: Ongoing (Eunice Giron, RN) Outcome: Patient will Demonstrate Understanding of Plan to Heal Skin and Prevent Reinjury and Verbalize Risk Factors (Eunice Giron RN) Status: Ongoing (Eunice Giron, RN) Parenting Impaired State: Not Applicable (Eunice Giron RN) Nutrition State: Not Applicable (Eunice Giron, RN) Grieving State: Not Applicable (Eunice Giron, RN)
[2016-09-29 07:58] LABS: HEMATOCRIT 29.4 % (36.0-47.0); MEAN CORPUSCULAR HEMOGLOBIN 29.5 pg (27.0-33.4); MEAN CORPUSCULAR HGB CONC 33.1 g/dL (32.0-36.0); MEAN CORPUSCULAR VOLUME 89 fl (80-97); RED CELL DISTRIBUTION WIDTH 14.7 % (11.5-14.0); WHITE BLOOD COUNT 13.7 10^3/uL (4.0-10.5)
[2016-09-29 08:03] LABS: HEMOGLOBIN 9.8 g/dL (12.0-15.5)
[2016-09-29] MEDS: PRENATAL VITAMIN W-O CA NO5/FE FUMARATE/FA CAPSULE PO SCH (09:36)
[2016-09-29] MEDS: SENNOSIDES/DOCUSATE 8.6-50 MG 1 EACH TABLET PO SCH (09:37)
[2016-09-29] MEDS: FERROUS SULFATE 325 MG TABLET PO SCH ×2 (09:37→17:28)
[2016-09-29] MEDS: DOCUSATE SODIUM 100 MG CAPSULE PO SCH ×2 (09:37→17:27)
--- NOTE | 2016-09-29 10:02 | PDOC PROGRESS REPORT ---
Subjective-OB Subjective: Post Delivery Day: 1 31 year old. Denies any needs at this time, states lochia is stable, pain is well controlled, voiding without difficulty. Physical Exam (OB) Vital Signs: Temp Pulse Resp BP Pulse Ox 97.9 F 74 16 102/55 L 100 09/29/16 08:20 09/29/16 08:20 09/29/16 08:20 09/29/16 08:20 09/29/16 08:20 Intake & Output 09/28/16 09/29/16 09/30/16 06:59 06:59 06:59 Weight 60.328 kg - Lochia Lochia Amount: Scant < 10 ml Lochia Color: Rubra/Red - Abdomen Description: Soft, Round Hernia Present: No Fundal Description: Firm, Midline Fundal Height: u/u - u/2 Objective-Diagnostic Laboratory: 09/29/16 07:29 09/28/16 09/28/16 09/28/16 09:50 10:57 10:57 WBC 13.8 H RBC 4.06 Hgb 11.9 L Hct 36.2 MCV 89 MCH 29.2 MCHC 32.8 RDW 14.9 H Plt Count 199 Seg Neutrophils % 72.2 Lymphocytes % 19.7 Monocytes % 7.4 Eosinophils % 0.3 Basophils % 0.4 Absolute Neutrophils 9.9 H Absolute Lymphocytes 2.7 Absolute Monocytes 1.0 Absolute Eosinophils 0.0 Absolute Basophils 0.1 Urine Color YELLOW Urine Appearance SLIGHTLY-CLOUDY Urine pH 7.0 Ur Specific Bivins 1.013 Urine Protein NEGATIVE Urine Glucose (UA) NEGATIVE Urine Ketones NEGATIVE Urine Blood LARGE H Urine Nitrite NEGATIVE Ur Leukocyte Esterase NEGATIVE Blood Type A POSITIVE Antibody Screen NEGATIVE 09/29/16 07:29 WBC 13.7 H RBC 3.30 L Hgb 9.8 L D Hct 29.4 L MCV 89 MCH 29.5 MCHC 33.1 RDW 14.7 H Plt Count 165 Seg Neutrophils % Lymphocytes % Monocytes % Eosinophils % Basophils % Absolute Neutrophils Absolute Lymphocytes Absolute Monocytes Absolute Eosinophils Absolute Basophils Urine Color Urine Appearance Urine pH Ur Specific Bivins Urine Protein Urine Glucose (UA) Urine Ketones Urine Blood Urine Nitrite Ur Leukocyte Esterase Blood Type Antibody Screen Assessment and Plan(PN) - Assessment and Plan (1) Vaginal delivery Is this a current diagnosis for this admission?: YesPlan: routine pp care anticipate d/c home tomorrow (2) Acute blood loss anemia Is this a current diagnosis for this admission?: YesPlan: ferrous sulfate increase dietary iron - Time Spent with Patient Time with patient: Less than 15 minutes Critical Time spent with patient: Less than 15 minutes Medications reviewed and adjusted accordingly: Yes - Disposition Anticipated Discharge: Home Within: within 24 hours
[2016-09-30] MEDS: IBUPROFEN 800 MG TABLET PO SCH ×2 (06:05→13:23)
[2016-09-30] MEDS: FERROUS SULFATE 325 MG TABLET PO SCH (09:42)
[2016-09-30] MEDS: DOCUSATE SODIUM 100 MG CAPSULE PO SCH (09:44)
[2016-09-30] MEDS: PRENATAL VITAMIN W-O CA NO5/FE FUMARATE/FA CAPSULE PO SCH (09:44)
[2016-09-30] MEDS: SENNOSIDES/DOCUSATE 8.6-50 MG 1 EACH TABLET PO SCH (09:44)
[2016-09-30] MEDS: BENZOCAINE/MENTHOL AEROSOL SPRAY 56 ML TOP PRN (13:22)
[2016-09-30 13:27] VITALS: BP 115/67
--- NOTE | 2016-09-30 15:00 | PDOC DISCHARGE SUMMARY ---
Final Diagnosis Discharge Date: 09/30/16 - Final Diagnosis (1) Acute blood loss anemia Is this a current diagnosis for this admission?: Yes (2) Vaginal delivery Is this a current diagnosis for this admission?: Yes Discharge Data - Discharge Medication Home Medications: Pnv No.122/Iron/Folic Acid [ Multi Tablet] 1 each PO DAILY 09/29/16 Docusate Sodium [Colace 100 mg Capsule] 100 mg PO BID #60 capsule 09/30/16 Ferrous Sulfate [Feosol 325 mg Tablet] 325 mg PO BID #60 tablet 09/30/16 Ibuprofen [Motrin 800 mg Tablet] 800 mg PO Q8HP PRN #60 tablet 09/30/16 Reason(s) for Admission: Onset of Labor Procedures: Ultrasound Intrapartum Procedure(s): Spontaneous Vaginal Delivery Complication(s): Laceration-Labial, Laceration-Periurethral - Data Baby 1 Female at 1 minute: 9 at 5 minutes: 9 Weight: 3320 kg Home with Mother: Yes Complications: No - Diagnosis Test Laboratory: Temp Pulse Resp BP Pulse Ox 97.8 F 59 L 15 103/50 L 100 09/30/16 07:26 09/30/16 07:26 09/30/16 07:26 09/30/16 07:26 09/30/16 07:26 09/28/16 09/28/16 09/29/16 09:50 10:57 07:29 RBC 4.06 3.30 L Hgb 11.9 L 9.8 L D Hct 36.2 29.4 L Urine Opiates Screen NEGATIVE - Discharge information/Instructions Discharge Activity: Activity As Tolerated, No Lifting Over 10 Pounds, Pelvic Rest, No tub bath Discharge Diet: Regular Disposition: HOME, SELF-CARE Follow up with: [facility] in: 4, Weeks Physical Exam (OB) Vital Signs: Temp Pulse Resp BP Pulse Ox 97.8 F 59 L 15 103/50 L 100 09/30/16 07:26 09/30/16 07:26 09/30/16 07:26 09/30/16 07:26 09/30/16 07:26 Intake & Output 09/29/16 09/30/16 10/01/16 06:59 06:59 06:59 Weight 60.328 kg - General General Appearance: Appears well In distress: None - PIH/Pre-Eclampsia Clonus: Negative - Episiotomy/Laceration Site Condition: Well Approximated - Lochia Lochia Amount: Scant < 10 ml Lochia Color: Rubra/Red - Abdomen Description: Soft, Flat Hernia Present: No Fundal Description: Firm, Midline Fundal Height: u/u - u/2 - Respiratory Respiratory Status: No respiratory distress - Neurological Cognition: Normal Orientation: AAOx4 - Psychological Associated symptoms: Normal affect, Normal mood - bonding well with baby helpful family at bedside
== END 2016-09-30 13:50 | disposition home or self-care (01) | DRG 775 ==
LOC: LC 09:35 → LR 10:25 → 2S 14:46
PROVIDERS: ADMIT Student in an Organized Health Care Education/Training Program; ATTEND Student in an Organized Health Care Education/Training Program
PROC: 10E0XZZ Delivery of Products of Conception, External Approach (ICD-10-PCS; principal; 2016-09-28)
PROC: 0UQMXZZ Repair Vulva, External Approach (ICD-10-PCS; 2016-09-28)
PROC: 4A1HXCZ Monitoring of Products of Conception, Cardiac Rate, External Approach (ICD-10-PCS; 2016-09-28)
DX: O62.2 Other uterine inertia (principal); D62 Acute posthemorrhagic anemia; O62.3 Precipitate labor; O99.02 Anemia complicating childbirth; O77.0 Labor and delivery complicated by meconium in amniotic fluid; O71.82 Other specified trauma to perineum and vulva; Z88.3 Allergy status to other anti-infective agents; Z3A.40 40 weeks gestation of pregnancy; Z37.0 Single live birth
CPT/HCPCS: 36415; 80307; 81005; 85025; 85027; 86592; 86850; 86900; 86901; 88307; J0690; J2210; J2590; J3010; J3490